=== PATIENT | male | born 1995 | race Caucasian/White ===

== ENCOUNTER 2018-12-25 16:19 | Emergency (ER) | payer MEDICAID ==
[~2018-12-25] VITALS: Ht 177.8 cm; Wt 123.8 kg
[2018-12-25 16:25] VITALS: BP 151/96; Ht 177.8 cm; Wt 123.8 kg
== END 2018-12-25 21:07 | disposition home or self-care (01) ==
LOC: ED 16:19
DX: J40 Bronchitis, not specified as acute or chronic (principal)
CPT/HCPCS: J7613

== ENCOUNTER 2018-12-25 23:14 | Emergency (ER) | payer MEDICAID ==
[~2018-12-25] VITALS: Ht 177.8 cm; Wt 122.5 kg
[2018-12-25 23:27] VITALS: Ht 177.8 cm; Wt 122.5 kg
[2018-12-26 00:03] LABS: BASOPHIL % 0.6 % (0-2); RED CELL DISTRIBUTION WIDTH 13.9 % (11.5-14.5)
[2018-12-26 00:05] LABS: CALCIUM 9.4 mg/dL (8.5-10.1); CARBON DIOXIDE 25.7 mmol/L (21-32); CHLORIDE SERUM 103 mmol/L (98-107); GFR1 > 60 mL/min; GLUCOSE SERUM 126 mg/dL (74-106); POTASSIUM SERUM 3.3 mmol/L (3.5-5.1); SODIUM SERUM 140 mmol/L (136-145)
[2018-12-26 00:10] LABS: ALBUMIN 4.1 g/dL (3.4-5.0); ALKALINE PHOSPHATASE 88 U/L (46-116); ALT/SGPT 31 U/L (16-63); AST/SGOT 16 U/L (15-37); BILIRUBIN TOTAL 0.3 mg/dL (0.20-1.00)
[2018-12-26 00:14] LABS: TOTAL PROTEIN, SERUM 8.9 g/dL (6.4-8.2)
[2018-12-26 00:15] LABS: PLATELET COUNT 407 x10^3mcL (130-400)
[2018-12-26 00:35] VITALS: BP 160/99
== END 2018-12-26 00:35 | disposition home or self-care (01) ==
LOC: ED 23:14
PROVIDERS: Emergency Medicine
DX: S00.83XA Contusion of other part of head, initial encounter (principal); R55 Syncope and collapse; W22.8XXA Striking against or struck by other objects, initial encounter; Y93.89 Activity, other specified; Y92.89 Other specified places as the place of occurrence of the external cause; Y99.8 Other external cause status
CPT/HCPCS: 36415

== ENCOUNTER 2019-10-10 19:13 | Emergency (ER) | payer MEDICAID ==
[~2019-10-10] VITALS: Ht 177.8 cm; Wt 125.2 kg
[2019-10-10 23:48] VITALS: BP 122/75
== END 2019-10-10 23:48 | disposition home or self-care (01) ==
LOC: ED 19:13
DX: J36 Peritonsillar abscess (principal)
CPT/HCPCS: J0696; J1100; J1885; J3490